=== PATIENT | female | born 1950 | race Caucasian/White ===

== ENCOUNTER 2022-09-14 08:57 | Outpatient (CLI) | payer MEDICARE | END 2022-09-14 08:58 | disposition home or self-care (01) | LOC: CSHMAMMO 08:57 | PROVIDERS: ATTEND Nurse Practitioner Family | DX: Z12.31 Encounter for screening mammogram for malignant neoplasm of breast (principal); N63.10 Unspecified lump in the right breast, unspecified quadrant | CPT/HCPCS: 77063; 77067 ==

== ENCOUNTER 2022-09-14 13:15 | Outpatient (CLI) | payer MEDICARE | END 2022-09-14 13:16 | disposition home or self-care (01) | LOC: CSHULT 13:15 | PROVIDERS: ATTEND Nurse Practitioner Family | DX: R59.1 Generalized enlarged lymph nodes (principal) | CPT/HCPCS: 76536 ==

== ENCOUNTER 2022-09-28 08:35 | Outpatient (CLI) | payer MEDICARE | END 2022-09-28 08:36 | disposition home or self-care (01) | LOC: CSHULT 08:35 | PROVIDERS: ATTEND Nurse Practitioner Family | DX: N63.10 Unspecified lump in the right breast, unspecified quadrant (principal) ==

== ENCOUNTER 2022-10-11 08:30 | Outpatient (CLI) | payer MEDICARE ==
[2022-10-11] MEDS ORDERED: Iopamidol 370 76% 100 ML VIAL ONE (08:41)
== END 2022-10-11 08:31 | disposition home or self-care (01) ==
LOC: CSHCT 08:30
PROVIDERS: ATTEND Nurse Practitioner Family
DX: R59.0 Localized enlarged lymph nodes (principal)
CPT/HCPCS: 70491; 82565